=== PATIENT | male | born 1950 | race Caucasian/White ===

== ENCOUNTER → 2021-04-20 15:00 | Outpatient (REF) | payer MEDICARE, SELFPAY | LOC: ANHLAB 15:00 | PROVIDERS: PCP Orthopaedic Surgery; Visit Provider Nurse Practitioner | DX: C44.619 Basal cell carcinoma of skin of left upper limb, including shoulder (principal) | CPT/HCPCS: 88305 ==

== ENCOUNTER → 2022-04-28 12:54 | Outpatient (REF) | payer MEDICARE, SELFPAY | LOC: ANHLAB 12:54 | PROVIDERS: Visit Provider Nurse Practitioner | DX: C44.619 Basal cell carcinoma of skin of left upper limb, including shoulder (principal) | CPT/HCPCS: 88305 ==

== ENCOUNTER → 2022-05-24 13:26 | Outpatient (REF) | payer MEDICARE, SELFPAY | LOC: ANHLAB 13:26 | PROVIDERS: Visit Provider Nurse Practitioner | DX: E66.9 Obesity, unspecified (principal); C44.619 Basal cell carcinoma of skin of left upper limb, including shoulder | CPT/HCPCS: 88305 ==

== ENCOUNTER 2023-07-13 08:00 | Outpatient (NON) | payer MEDICARE, SELFPAY | END 2023-07-13 08:01 | disposition home or self-care (01) | PROVIDERS: Visit Provider Nurse Practitioner | DX: C44.519 Basal cell carcinoma of skin of other part of trunk (principal); C44.319 Basal cell carcinoma of skin of other parts of face | CPT/HCPCS: 88305 ==

== ENCOUNTER 2023-08-07 13:50 | Outpatient (NON) | payer MEDICARE, SELFPAY | END 2023-08-07 13:51 | disposition home or self-care (01) | LOC: ANHLAB 13:51 | PROVIDERS: Visit Provider Nurse Practitioner | DX: C44.319 Basal cell carcinoma of skin of other parts of face (principal) | CPT/HCPCS: 88305; 88331 ==

== ENCOUNTER 2023-08-17 08:00 | Outpatient (NON) | payer MEDICARE, SELFPAY | END 2023-08-17 08:01 | disposition home or self-care (01) | LOC: ANHLAB 08-18 14:13 | PROVIDERS: Visit Provider Nurse Practitioner | DX: D18.01 Hemangioma of skin and subcutaneous tissue (principal) | CPT/HCPCS: 88305 ==